=== PATIENT | female | born 1950 | race Caucasian/White ===

== ENCOUNTER → 2016-03-23 | Outpatient (CLI) | payer OTHER ==
--- NOTE | 2016-03-23 14:27 | MR ---
MRI of the Lumbar Spine (Without Contrast) Clinical Indications: Low back pain. Technique: Sagittal and axial T1 and T2 MR sequences of the lumbar spine without contrast. Findings: L1-L2: No disk herniation or stenosis. L2-L3: Disk desiccation and mild annular bulging, without discrete disk prolapse or neural impingemen t. Foramina remain widely patent.. L3-L4: Disk desiccation and mild diffuse annular bulging, again without discrete disk prolapse or carlo ral impingement. There is mild left neural foraminal stenosis secondary to annular bulging within the foramina.. L4-L5: Severe bilateral facet degenerative joint disease and bony hyperostosis. There is secondary mi nimal anterolisthesis of L4 upon L5. Diffuse annular bulging is present, without discrete disk prolap se. Moderate left neural foraminal stenosis secondary to annular bulging.. L5-S1: Severe bilateral facet degenerative arthropathy again noted at this level. Annular bulging ext ends into the foramina bilaterally, which appear mildly stenotic. No discrete disk prolapse.. Impression: 1. Severe bilateral facet degenerative arthropathy at L4-L5 and L5-S1, with minimal degenerative spon dylolisthesis at L4-L5.. 2. Multilevel lumbar degenerative disk disease, as detail by levels above, without discrete disk diana iation. There is moderate left neural foraminal stenosis at L4-L5.. 3. Please see specific level findings above.
== END ==
LOC: FIMAGING 12:56
PROVIDERS: ATTEND Internal Medicine
DX: M54.5 Low back pain (principal); M51.36 Other intervertebral disc degeneration, lumbar region; M43.16 Spondylolisthesis, lumbar region

== ENCOUNTER → 2016-06-23 | Outpatient (CLI) | payer OTHER | LOC: BMCIMAGING 12:24 | PROVIDERS: ATTEND Internal Medicine | DX: S69.91XA Unspecified injury of right wrist, hand and finger(s), initial encounter (principal); Z86.711 Personal history of pulmonary embolism ==

== ENCOUNTER → 2016-11-23 | Outpatient (CLI) | payer OTHER | LOC: FCPNEURO 21:00 | PROVIDERS: ATTEND Student in an Organized Health Care Education/Training Program | DX: G47.33 Obstructive sleep apnea (adult) (pediatric) (principal) ==

== ENCOUNTER 2017-01-25 15:34 | Emergency (ER) | payer OTHER ==
[2017-01-25 15:39] VITALS: RESP 18; TEMP 97.9; O2SAT 94
--- NOTE | 2017-01-25 17:11 | EDPHY ---
General - History Smoking Status: Former smoker Narrative: CHIEF COMPLAINT: Elevated INR HISTORY OF PRESENT ILLNESS: Patient presents with reports of elevated INR. She was at her heater furnace's office today for a checkup. Laboratory studies were drawn. She went home and was contacted later informed that her INR was greater than the 6. She has had no chest pain. She has had ongoing shortness of breath which was unchanged. She has had no falls. No headache. No bleeding from any site that is new for her. She has mild bleeding of the gums and lips due to her CPAP, this is unchanged for years. She has no abdominal pain. No gross hematuria. No concerns or new complaints of any kind. She is here only due to the elevated INR, and she was instructed to come to the emergency department. She has been on Coumadin for 4 years due to bilateral PEs. No other associated complaints or modifying factors. REVIEW OF SYSTEMS: Ten systems reviewed and are negative unless otherwise noted in the HPI PCP: Dr. Scarlet العلي SPECIALISTS: Die [employer] Dr. Stinson GI physician Dr. Stinson PAST MEDICAL HISTORY: PE, anxiety, dyslipidemia, upper GI bleed, sleep apnea PAST SURGICAL HISTORY: Reviewed. Upper GI with cautery on December 09, 2016. Colonoscopy and endoscopy October 27, 2016. SOCIAL HISTORY: Nonsmoker. Occasional alcohol. No drug use. Patient works as a nurse FAMILY HISTORY: Noncontributory EXAMINATION General Appearance: Alert, no distress Head: normocephalic, atraumatic. No Robles sign. No raccoon eyes. Eyes: Pupils equal and round, no conjunctival pallor or injection. No hyphema. No subconjunctival hemorrhage. ENT, Mouth: Mucous membranes moist. Airway is widely patent Neck: Normal inspection, supple, non-tender Respiratory: Lungs are clear to auscultation. No wheezing, rhonchi or crackles Cardiovascular: Regular rate and rhythm no murmur Gastrointestinal: Abdomen is soft and nontender. No distention or tympany. Neurological: A&O, nonfocal, normal gait. Strength is symmetric in all 4 limbs. Skin: Warm and dry, no rash. Mild bruising and multiple limbs of various stages of healing. No lacerations. No abrasions. Extremities: Nontender, no pedal edema. Range of motion is symmetric in all 4 extremities Psychiatric: Mood and affect normal DIFFERENTIAL DIAGNOSES: Including but not limited to Coumadin coagulopathy, elevated INR, PE, dyspnea MDM: 5:08 p.m. Elevated INR that was drawn earlier today. Patient is on Coumadin chronically due to PE diagnosed in 2012. She has had no bleeding from any site. No recent falls. She has no headache. She is in no acute distress with no complaints other than the elevated INR. I did check the remainder for laboratory studies from earlier today. Her CBC reveals a hemoglobin at baseline. Chest x-ray was reviewed, there are no acute changes. I have ordered a repeat INR to verify that this is a real value. I discussed with Dr. Sepulveda. Plan for following the general anticoagulation protocol after verification of the INR. 5:53 p.m. Patient re-evaluated. Her INR here is 6.09. Using the general antithrombotic protocol, this places her in the warfarin without bleed, INR 5-9. I discussed risks and benefits of a 1 time dose of 2.5 p.o. vitamin K. She would like to take the dose. She would like to be discharged home at this time. I do feel she is stable to do so. I offered phone call to her prescribing physician, but she would like to call them tomorrow. She has a standing order for INR to be checked, thus she can have her INR checked tomorrow here without further order. I instructed her to do so tomorrow. She has not taking any Coumadin today and she will hold tonight's dose. She will contact both her prescribing physician and her heater furnace tomorrow morning for further instructions after INR is recheck. She will return to emergency department for any headache of any kind, any falls or bleeding from any site. She is comfortable with this plan and discharged home stable condition. (Maximo Kohli) Discussion: PHYSICIAN DOCUMENTATION: The patient was evaluated and managed by the Physician Chapter Relations Administrator and myself. I have reviewed the chart and agree with the findings and plan of care as documented. In addition, I examined the patient myself at 1715. History confirmed as elevated INR but without signs or symptoms of bleeding. Physical findings as follows: alert, cooperative. No facial bruising. Recheck INR, if elevated but less than 9 but without signs of bleeding will hold and discuss vitamin K orally. I am the secondary supervising physician. (Brandon Sepulveda) - Objective Vital Signs: Initial Vital Signs Temperature (C) 36.6 C 11/27/17 15:35 Heart Rate 85 01/25/17 15:35 Respiratory Rate 18 01/25/17 15:35 Blood Pressure 152/91 H 01/25/17 15:35 O2 Sat (%) 94 01/25/17 15:35 O2 Delivery Mode Room Air Allergies/Adverse Reactions: acetaminophen [From Vicodin] Allergy (Verified 10/25/15 10:21) Vomiting hydrocodone bitartrate [From Vicodin] Allergy (Verified 10/25/15 10:21) Vomiting oxycodone HCl [From Percocet] Allergy (Verified 10/25/15 10:21) Vomiting tamoxifen Allergy (Verified 10/25/15 10:21) Other-Enter Comments Home Medications: Medication Instructions Recorded Coumadin 5 mg PO 10/25/15 Coumadin 7.5 mg PO 10/25/15 Crestor 20 mg PO HS 10/25/15 Seroquel 300 mg PO HS 10/25/15 VYVANSE 30 mg PO DAILY 10/25/15 Vitamin D3 5,000 units PO HS 10/25/15 Xanax 0.5 mg PO HS 10/25/15 Medications Given: Discontinued Medications Phytonadione (Vitamin K) 2.5 mg PO ONCE ONE Stop: 01/25/17 17:48 Last Admin: 01/25/17 18:10 Dose: 2.5 mg Departure - Departure Disposition: Home, Routine, Self-Care Clinical Impression: Warfarin-induced coagulopathy Condition: Good Instructions: Warfarin (By mouth), Elevated INR (ED) Additional Instructions: 1. Contact your primary care physician and heater furnace tomorrow morning 2. Return to the hospital for INR recheck tomorrow 3. Return to emergency department for any falls, any head injury, any headache, any bleeding from any site Referrals: Scarlet العلي MD [Primary Care Provider] - As per Instructions Roland John MD [Medical Doctor] - As per Instructions
[2017-01-25 17:35] LABS: APTT 51.6 SEC (23.0-38.0)
[2017-01-25 17:40] LABS: PROTIME(PATIENT) 55.6 SEC (12.0-15.0)
[2017-01-25 17:41] LABS: INR 6.09 (0.83-1.16)
[2017-01-25] MEDS ORDERED: PHYTONADIONE 2.5 MG/2.5 ML ORAL UDL PO ONE (17:47)
[2017-01-25 18:19] VITALS: BP 166/82; PULSE 84
== END 2017-01-25 18:19 | disposition home or self-care (01) ==
DX: D68.9 Coagulation defect, unspecified (principal); Z87.891 Personal history of nicotine dependence

== ENCOUNTER → 2017-01-25 | Outpatient (CLI) | payer OTHER | LOC: BMCIMAGING 12:29 | PROVIDERS: ATTEND Internal Medicine Cardiovascular Disease | DX: R06.02 Shortness of breath (principal); I25.10 Atherosclerotic heart disease of native coronary artery without angina pectoris; E78.5 Hyperlipidemia, unspecified ==

== ENCOUNTER → 2017-07-01 | Outpatient (CLI) | payer OTHER ==
[~2017-07-01] MED LIST: GADOBUTROL 10 ML VIAL IVP ONE
== END ==
LOC: FIMAGING 14:02
PROVIDERS: ATTEND Internal Medicine
DX: R05 Cough (principal); R06.02 Shortness of breath
CPT/HCPCS: 70553; 71046; A9585

== ENCOUNTER → 2017-08-22 | Outpatient (CLI) | payer OTHER | LOC: FIMAGING 12:44 | PROVIDERS: ATTEND Psychiatry & Neurology Neurology | DX: M50.20 Other cervical disc displacement, unspecified cervical region (principal); M48.02 Spinal stenosis, cervical region; M99.71 Connective tissue and disc stenosis of intervertebral foramina of cervical region ==

== ENCOUNTER → 2017-08-25 | Outpatient (CLI) | payer OTHER | LOC: FIMAGING 08:57 | PROVIDERS: ATTEND Neurological Surgery | DX: M54.2 Cervicalgia (principal); M50.222 Other cervical disc displacement at C5-C6 level; M25.78 Osteophyte, vertebrae ==

== ENCOUNTER → 2017-08-30 | Outpatient (CLI) | payer OTHER | LOC: BMCIMAGING 14:47 | PROVIDERS: ATTEND Nurse Practitioner Adult Health | DX: M25.562 Pain in left knee (principal) ==

== ENCOUNTER → 2017-12-26 | Outpatient (CLI) | payer OTHER | LOC: FIMAGING 07:43 | PROVIDERS: ATTEND Physician Assistant Medical | DX: M50.321 Other cervical disc degeneration at C4-C5 level (principal); M53.82 Other specified dorsopathies, cervical region; M48.02 Spinal stenosis, cervical region; M53.87 Other specified dorsopathies, lumbosacral region; M48.061 Spinal stenosis, lumbar region without neurogenic claudication; M43.16 Spondylolisthesis, lumbar region ==

== ENCOUNTER → 2018-07-13 | Outpatient (CLI) | payer OTHER | LOC: FCPNEURO 20:00 | PROVIDERS: ATTEND Internal Medicine Sleep Medicine | DX: G47.33 Obstructive sleep apnea (adult) (pediatric) (principal); G47.36 Sleep related hypoventilation in conditions classified elsewhere ==

== ENCOUNTER → 2018-08-08 | Outpatient (CLI) | payer OTHER | LOC: FIMAGING 12:48 ==

== ENCOUNTER → 2018-08-12 | Outpatient (CLI) | payer OTHER | LOC: FIMAGING 12:46 ==